=== PATIENT | male | born 1985 ===

== ENCOUNTER → 2016-12-05 | Emergency (ER) | payer OTHER | END | disposition home or self-care (01) | LOC: CFTX 10:31 → CED 10:31 | DX: T63.301A Toxic effect of unspecified spider venom, accidental (unintentional), initial encounter (principal); G40.909 Epilepsy, unspecified, not intractable, without status epilepticus; F17.210 Nicotine dependence, cigarettes, uncomplicated; Z86.73 Personal history of transient ischemic attack (TIA), and cerebral infarction without residual deficits; Z88.5 Allergy status to narcotic agent; Z88.6 Allergy status to analgesic agent; Z88.8 Allergy status to other drugs, medicaments and biological substances | CPT/HCPCS: 99282 ==